=== PATIENT | male | born 1980 | race Caucasian/White ===

== ENCOUNTER → 2024-04-28 | Outpatient (CLI) | payer MEDICARE ==
[2024-04-28 15:23] LABS: HEMATOCRIT 43.1 % (42.0-52.0); HEMOGLOBIN 13.7 g/dL (13.5-18.0); MEAN PLATELET VOLUME 10.6 fl (7.4-10.4); RED BLOOD COUNT 4.66 M/mm3 (4.20-5.60); RED CELL DISTRIBUTION WIDTH 14.9 % (11.5-14.5); WHITE BLOOD COUNT 5.9 K/mm3 (4.8-10.8)
[2024-04-28 15:39] LABS: ALBUMIN 4.3 g/dL (3.5-5.0)
[2024-04-28 15:41] LABS: CALCIUM 9.5 mg/dL (8.3-10.5)
[2024-04-28 15:42] LABS: TOTAL PROTEIN 7.4 g/dL (6.4-8.3)
[2024-04-28 15:44] LABS: TOTAL BILIRUBIN 0.6 mg/dL (0.2-1.2)
== END ==
LOC: LAB 14:32
PROVIDERS: Family Medicine
DX: M41.83 Other forms of scoliosis, cervicothoracic region (principal); G20.B1 Parkinson's disease with dyskinesia, without mention of fluctuations

== ENCOUNTER 2024-05-02 15:07 | Outpatient (RCR) | payer MEDICARE, MEDICAID | END 2024-05-25 | disposition home or self-care (01) | LOC: PT | DX: G20.B1 Parkinson's disease with dyskinesia, without mention of fluctuations (principal) ==

== ENCOUNTER 2024-05-08 14:58 | Outpatient (RCR) | payer MEDICARE, MEDICAID | END 2024-05-25 | disposition home or self-care (01) | LOC: OT | DX: G20.B1 Parkinson's disease with dyskinesia, without mention of fluctuations (principal) ==

== ENCOUNTER 2024-05-30 13:58 | Outpatient (RCR) | payer MEDICARE, MEDICAID | END 2024-06-24 | LOC: SPEECH | DX: Z01.89 Encounter for other specified special examinations (principal) ==

== ENCOUNTER 2024-06-27 08:41 | Outpatient (RCR) | payer MEDICARE, MEDICAID | END 2024-07-25 | LOC: SPEECH | DX: G20.A1 Parkinson's disease without dyskinesia, without mention of fluctuations (principal) ==

== ENCOUNTER → 2024-09-08 | Outpatient (CLI) | payer MEDICARE, MEDICAID ==
[~2024-09-08] MED LIST: Gadoterate 20 ML VIAL IV ONE
== END ==
LOC: RAD 13:50
DX: I67.82 Cerebral ischemia (principal); G20.C Parkinsonism, unspecified; R41.3 Other amnesia; M24.542 Contracture, left hand
CPT/HCPCS: A9575